=== PATIENT | male | born 1935 | race Caucasian/White ===

== ENCOUNTER 2018-03-23 13:30 | Emergency (ER) | payer OTHER, MEDICARE ==
[~2018-03-23] VITALS: Ht 170.2 cm; Wt 63.5 kg
[~2018-03-23 13:30] MED LIST: ASPIR 8181 MG PO; FISH OIL 1,001000 M2 PO; FLOMAX0.4 MG PO; IMODIUM A-D2 M1 PO; LOPRESSOR25 PO; RESTASIS1 EACH OPHTHALMIC; SIMVASTATIN40 MG PO; UNICOMPLEX M TA1 TA1 PO; XALATAN2.5 ML OPHTHALMIC
[2018-03-23 13:49] LABS: ABSOLUTE EOSINOPHILS 0.1 thou/uL (0.0-0.7); ABSOLUTE LYMPHOCYTES 1.5 thou/uL (0.8-5.3); ABSOLUTE MONOCYTES 0.5 thou/uL (0.0-1.2); ABSOLUTE NEUTROPHILS 3.6 thou/uL (1.6-8.1); BASOPHILS 0.7 %; EOSINOPHILS 1.3 %; HEMATOCRIT 42.8 % (42.0-52.0); HEMOGLOBIN 14.5 gm/dL (14.0-18.0); LYMPHOCYTES 25.9 %; MCHC 33.8 g/dL (28.0-37.0); MCV 94.7 fL (80.0-100.0); MONOCYTES 8.9 %; MPV 7.7 fl. (7.2-11.1); NUCLEATED RBCS 0 /100WBC; PLATELET COUNT* 201 thou/uL (150-400); POLYS 63.2 %; RBC 4.52 mil/uL (4.50-6.00); RDW-CV 13.7 % (10.5-14.5); WBC 5.6 thou/uL (4.0-11.0)
[2018-03-23 14:07] LABS: INR 1.1; PROTIME 10.8 Seconds (9.20-11.50)
[2018-03-23 14:28] LABS: ALBUMIN 3.9 g/dL (3.4-5.0); ALKALINE PHOSPHATASE 56 U/L (46-116); ANION GAP 6 mmol/L (7-16); BUN 17 mg/dL (7-18); CALCIUM 8.4 mg/dL (8.5-10.1); CHLORIDE 102 mmol/L (98-107); CO2 30 mmol/L (21-32); CREATININE 0.9 mg/dL (0.6-1.3); GLUCOSE 134 mg/dL (70-99); LIPASE 152 U/L (73-393); NT-PRO BRAIN NAT PEPTIDE 600 pg/mL (<300); POTASSIUM 4.1 mmol/L (3.5-5.1); SGOT 21 U/L (15-37); SGPT 24 U/L (30-65); SODIUM 138 mmol/L (136-145); TOTAL BILIRUBIN 0.5 mg/dL (<0.1-1.0); TOTAL PROTEIN 7.1 g/dL (6.4-8.2); TROPONIN-I LEVEL <0.06 ng/mL (<0.06)
--- NOTE | 2018-03-23 14:52 | EKG ---
[place] [address] ELECTROCARDIOGRAM REPORT Name: RENETTA MITCHELL Room: 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: [facility] : 1935 Requested By: Laron Rossi Order Number: [id number] MD: Wei Porter Measurements Intervals [place] Rate: 62 P: 61 CA: 167 QRS: -12 QRSD: 143 T: 132 QT: 414 QTc: 421 Interpretive Statements Sinus rhythm Probable left atrial enlargement Right bundle branch 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
[2018-03-23 15:17] VITALS: BP 138/52
--- NOTE | 2018-03-27 15:43 | 24HR ---
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 The mean heart rate was 63 bpm. The minimum heart rate was 44 bpm corresponding with sinus bradycardia. The maximum heart rate was 116 beats per corresponding with sinus tachycardia. Tachycardia defined as heart rate greater than 100 bpm was observed 1% of the monitored phase. Bradycardia defined as heart rate of less than 50 bpm was observed 6% of the monitored phase. There are frequent unifocal premature ventricular contractions noted. There are rare ventricular couplets noted. There were no episodes of significant nonsustained or sustained ventricular tachycardia. There are frequent premature atrial contractions noted. There are occasional atrial couplets and triplets noted. There were occasional episodes of nonsustained supraventricular tachycardia lasting up to 10 beats at a rate of 145 bpm. There were no episodes of sustained supraventricular arrhythmia. There were no significant pauses in rhythm. There was no evidence of underlying atrial fibrillation or flutter. No diary was submitted with this [place] [address] HOLTER MONITOR REPORT Name: RENETTA MITCHELL [id number] Admission: 03/23/18 Attend Phys: Discharge: 03/23/18 Date of : 35 Date of Service: 03/27/18 1150 Report #: [id number] Electronically Signed On 03-27-2018 15:43:02 CDT by Jens Dean [email or web address] <ELECTRONICALLY SIGNED> By: Jens Dean MD, [facility] 03/27/18 1543 1150 115 Jens Dean MD, FACRenate /EPI
== END 2018-03-23 15:20 | disposition home or self-care (01) ==
LOC: M.ERS 13:30
PROVIDERS: Emergency Medicine
DX: R00.2 Palpitations (principal); I10 Essential (primary) hypertension; Z91.040 Latex allergy status